=== PATIENT | female | born 1970 | race Caucasian/White ===

== ENCOUNTER 2016-12-13 06:00 | Day surgery (SDC) | payer OTHER ==
[2016-12-12 17:11] LABS: BASOPHILS # (AUTO) 0.2 K/uL (0.00-0.22); BASOPHILS % (AUTO) 1.8 % (0.0-2.0); EOSINOPHILS # (AUTO) 0.1 K/uL (0-0.4); EOSINOPHILS % (AUTO) 1.4 % (0.0-4.0); HEMATOCRIT 45.9 % (36-48); HEMOGLOBIN 14.7 g/dL (12.0-16.0); LYMPHOCYTES # (AUTO) 2.1 K/uL (2.5-16.5); LYMPHOCYTES % (AUTO) 21.5 % (20.5-51.1); MEAN CORPUSCULAR HEMOGLOBIN 30 pg (27-31); MEAN CORPUSCULAR HGB CONC 32 g/dL (33-37); MEAN CORPUSCULAR VOLUME 94 fL (80-94); MONOCYTES # (AUTO) 0.7 K/uL (0.8-1.0); MONOCYTES % (AUTO) 7.5 % (1.7-9.3); NEUTROPHILS # (AUTO) 6.7 K/uL (1.8-7.7); NEUTROPHILS % (AUTO) 67.8 % (42.2-75.2); PLATELET COUNT (AUTO) 491 K/uL (140-450); RED BLOOD CELL COUNT(AUTO) 4.87 MIL/uL (4.20-5.40); RED CELL DISTRIBUTION WIDTH 13.3 % (11.6-13.7); WHITE BLOOD COUNT (AUTO) 9.8 K/uL (4.8-10.8)
[2016-12-12 17:25] LABS: ALBUMIN 3.7 g/dL (3.4-5.0); CARBON DIOXIDE 26.9 mmol/L (21-32); CREATININE 0.6 mg/dL (0.6-1.3); POTASSIUM 3.9 mmol/L (3.5-5.1); TOTAL BILIRUBIN 0.4 mg/dL (0.0-1.0)
[~2016-12-13] VITALS: Ht 157.5 cm; Wt 90.7 kg
[2016-12-13] MEDS ORDERED: MORPHINE SULFATE 4 MG/ML SYR IM/IVP PRN (06:35)
[2016-12-13] MEDS ORDERED: ONDANSETRON 4 MG/2 ML VIAL IVP PRN ×2 (06:35→07:50)
[2016-12-13] MEDS ORDERED: ACETAMINOPHEN/CODEINE 300/30MG 1 TAB PO PRN (06:35)
[2016-12-13] MEDS ORDERED: IBUPROFEN 800 MG TAB PO PRN (06:35)
[2016-12-13] MEDS ORDERED: SEVOFLURANE 250 ML BTL INH ONE (07:21)
[2016-12-13] MEDS ORDERED: PROPOFOL 200 MG/20 ML VIAL IV ONE (07:21)
[2016-12-13] MEDS ORDERED: MIDAZOLAM 2 MG/2 ML VIAL ONE (07:35)
[2016-12-13] MEDS ORDERED: fentaNYL 0.05 MG/ML VIAL ONE (07:35)
[2016-12-13] MEDS ORDERED: [UNRECOGNIZED DRUG - CODE] PO (07:46)
[2016-12-13] MEDS ORDERED: HYDROmorphone 1 MG/ML AMP IVP PRN (07:50)
[2016-12-13 09:10] VITALS: BP 118/74
--- NOTE | 2016-12-13 09:10 | NUR ---
PATIENT ARRIVED TO THE UNIT FOR OBSERVATION FROM THE PACU. PATIENT IS POST A & P REPAIR. BEDSIDE REPORT RECEIVED FROM PACU NURSE. PATIENT IS AWAKE, ALERT, AND ORIENTED. NO SIGNS AND SYMPTOMS OF DISTRESS NOTED. PATIENT COMPLAINED OF A LITTLE SORENESS, BUT STATES THAT SHE IS IN NO PAIN. PERINEAL PAD WAS CHECKED, AND THERE IS MINIMAL BLOOD. BED IS IN LOWEST POSITION, SIDE RAILS UP AND CALL LIGHT WITHIN REACH. WILL CONTINUE TO MONITOR.
--- NOTE | 2016-12-13 11:30 | NUR ---
ASSISTED PATIENT WITH AMBULATING TO THE RESTROOM. PATIENT VOIDED. PATIENT REPORTED A MINIMAL AMOUNT OF BLOOD. NO SOB OR SIGNS AND SYMPTOMS OF DISTRESS NOTED.
[2016-12-13 11:48] VITALS: BP 132/76
--- NOTE | 2016-12-13 15:02 | NUR ---
PT SITTING UP IN BED IN NAD, RESP EVEN UNLABORED SKIN WARM DRY COLOR WNL, PT DENIES PAIN OR DISCOMFORT, DENIES NAUSEA OR VOMITING, PT UP OUT OF BED WITHOUT PROBLEM WITHOUT ASSIST, AMBULATES WITH STEADY GAIT AROUND THE HALLWAY, DENIES LIGHTHEADEDNESS, DENIES DIZZINESS, PT TO BATHROOM, VOIDING WELL WITHOUT PROBLEM, ONLY SMALL AMOUT OF VAGINAL BLEEDING NOTED ON PERIPAD. PT RETURNED TO BED, CALL ACUÑA WITHIN REACH SIDE RAILS UP, CALL ACUÑA WITHIN REACH, WILL CONTINUE TO MONITOR.
[2016-12-13 16:00] VITALS: BP 123/79
--- NOTE | 2016-12-13 16:00 | NUR ---
PER DR Taina RICO ON THE PHONE, PT OK TO DC HOME BEFORE 1800. WILL PREPARE FOR DC HOME.
--- NOTE | 2016-12-13 18:45 | NUR ---
PATIENT DISCHARGED HOME. DISCHARGE INSTRUCTIONS AND PRESCRIPTIONS GIVEN AND SIGNED BY PATIENT. PATIENT VERBALIZED UNDERSTANDING. NO SIGNS AND SYMPTOMS OF DISTRESS NOTED. NO COMPLAINTS OF PAIN. IV SITE DISCONTINUED, IV CANNULA INTACT. PATIENT LEFT WITH ALL HER BELONGINGS. MOTHER WAS PRESENT AT BEDSIDE.
== END 2016-12-13 18:45 | disposition home or self-care (01) ==
LOC: MDS 06:00 → MMU 06:01 → MTU 08:46 → MDS 18:45
PROVIDERS: ATTEND Obstetrics & Gynecology
DX: N81.10 Cystocele, unspecified (principal); N81.6 Rectocele; N39.3 Stress incontinence (female) (male); I11.0 Hypertensive heart disease with heart failure; N18.9 Chronic kidney disease, unspecified; K21.9 Gastro-esophageal reflux disease without esophagitis; E66.9 Obesity, unspecified; F17.210 Nicotine dependence, cigarettes, uncomplicated; E11.22 Type 2 diabetes mellitus with diabetic chronic kidney disease; J45.909 Unspecified asthma, uncomplicated; D64.9 Anemia, unspecified; G40.909 Epilepsy, unspecified, not intractable, without status epilepticus; Z98.890 Other specified postprocedural states
CPT/HCPCS: 36415; 57260; 80053; 84702; 85025; 87081; J0690; J2250; J2704; J3010; J7030; J7060; J7120; J2405